=== PATIENT | female | born 1975 | race Caucasian/White ===

== ENCOUNTER → 2017-12-05 | Outpatient (CLI) | payer BC ==
[~2017-12-05] MED LIST: IOPAMIDOL 370 MG/ML 200 ML INFUS..BTL INJ ONE; LEXAPRO10 MG PO; SODIUM CHLORIDE 0.9% 250ML 250 ML ONE; TROKENDI XR PO
--- NOTE | 2017-12-05 17:55 | Diagnostic Imaging Report ---
PROCEDURE: CT ABDOMEN \T\ PELVIS W/WO CONTRAST TECHNIQUE: The abdomen and pelvis were scanned utilizing a multidetector helical scanner from the diaphragm to the lesser trochanter before and after the IV administration of 150 cc of Isovue 370 and the oral administration of water. Coronal and sagittal multiplanar reformations were obtained. COMPARISON: None. INDICATIONS: HEMATURIA FINDINGS: LOWER THORAX: Focal tree in bud and groundglass opacities extending along the bronchovascular bundle in the anterior left lower lobe (series 3, images 2-7). Rest of the lung bases is clear. HEPATOBILIARY: Normal hepatic size and contour. No focal hepatic lesions. No biliary ductal dilation. Cholecystectomy clips. SPLEEN: No splenomegaly. PANCREAS: No focal masses or ductal dilatation. ADRENALS: No adrenal nodules. KIDNEYS/URETERS: No renal or, ureteral, or bladder calculi. No hydronephrosis, hydroureter, or evidence of obstruction. Symmetrical renal enhancement. * 6 mm fat containing cortical lesion in the superior pole of the right kidney (series 6, image 67), which measure fat density. * 1.9 x 1.5 x 1.5 cm partially exophytic, well-circumscribed fat density lesion in the mid to inferior left kidney (series 6, image 98). No solid enhancing masses or cystic lesions. Good opacification of the renal collecting systems, renal pelves, and bilateral ureters. No filling defects, strictures, or extrinsic compressions. PELVIC ORGANS/BLADDER: No bladder calculi, wall thickening, or focal lesions. T-shaped IUD in place in the endometrial cavity. 5.6 x 5.7 x 5.7 cm mildly hypodense lesion in the uterine body/lower uterine segment, likely representing a fibroid. No adnexal masses. PERITONEUM / RETROPERITONEUM: No free air or fluid. LYMPH NODES: No lymphadenopathy. VESSELS: Unremarkable. GI TRACT: No bowel dilation or evidence of obstruction. Appendix is not identified, and normal in caliber. A few scattered diverticula in the sigmoid colon, without diverticulitis. BONES AND SOFT TISSUES: No aggressive lytic lesion. Degenerative disc changes L4-L5 and L5-S1. Soft tissues are grossly unremarkable. IMPRESSION: 1. No renal, ureteral or bladder calculi. No hydronephrosis or obstruction. No filling defects, strictures, or extrinsic compressions in the opacified portions of the genitourinary tract. 2. Bilateral renal angiomyolipomas. 3. Findings in the anterior aspect of the left lower lobe consistent with endobronchial spread of infection/pneumonia or aspiration. 4. 5.7 cm hypodense lesion in the uterus likely represents a fibroid. This may be confirmed with transvaginal ultrasound, if clinically indicated. Tucker Talbert M.D. Dictated by: Tucker Talbert M.D. on 12/05/2017 at 17:57 Electronically approved by: Tucker Talbert M.D. on 12/05/2017 at 17:57
== END ==
LOC: CT 08:26
PROVIDERS: ATTEND Urology
DX: R31.21 Asymptomatic microscopic hematuria (principal)
CPT/HCPCS: 74178; J7050; Q9967

== ENCOUNTER → 2017-12-11 | Day surgery (SDC) | payer BC ==
[~2017-12-11] MED LIST changes: +BELLADONNA/OPIUM 60 MG SUPP PR ONE; +CEFTRIAXONE SOD 1 GM VIAL ONE; +DEXAMETHASONE SOD PHOS INJ 4 MG/ML VIAL ONE; +FENTANYL CITRATE/PF 100MCG/2 ML INJ ONE; -IOPAMIDOL 370 MG/ML 200 ML INFUS..BTL INJ ONE; +IOPAMIDOL 610MG/1ML 300 MG/ML VIAL IV ONE; +LIDOCAINE HCL 2% LOCAL INJ 5 ML SDV VIAL INJ ONE; +MIDAZOLAM HCL 2 MG/2 ML VIAL ONE; +ONDANSETRON HCL INJ 2 MG/ML VIAL ONE; +PROPOFOL IV EMULSION 10 MG/ML 20 ML VIAL ONE; +SEVOFLURANE INHAL SOLN 250 ML PEN BTL ONE; -SODIUM CHLORIDE 0.9% 250ML 250 ML ONE
--- OUTSIDE RECORDS SUMMARY | 2017-12-11 07:02 | XMS REPORT ---
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 Allergies, Adverse Reactions, Alerts This patient has no known allergies or adverse reactions. Medications This patient has no known medications. Results Test Description Test Time Test Comments Text Results Atomic Results Result Comments CT ABDOMEN/PELVIS WOW [address] [address] Patient Name: CARLOTTA MATA MR #: [id number] : 1975 Age/Sex: 42/F Req #: [id number] Adm Physician: Ordered by: CHRISTIANO PEÑA MD Report #: [id number] Location: CT Room/Bed: Procedure: [id number] CT/CT ABDOMEN/PELVIS WOW Exam Date: 12/05/17 Exam Time: 1000 REPORT STATUS: Signed PROCEDURE: CT ABDOMEN T PELVIS W/WO CONTRAST TECHNIQUE: The abdomen and pelvis were scanned utilizing a multidetector helical scanner from the diaphragm to the lesser trochanter before and after the IV administration of 150 cc of Isovue 370 and the oral administration of water. Coronal and sagittal multiplanar reformations were obtained. COMPARISON: None. INDICATIONS: HEMATURIA FINDINGS: LOWER THORAX: Focal tree in bud and groundglass opacities extending along the bronchovascular bundle in the anterior left lower lobe (series 3, images 2-7). Rest of the lung bases is clear. HEPATOBILIARY: Normal hepatic size and contour. No focal hepatic lesions. No biliary ductal dilation. Cholecystectomy clips. SPLEEN: No splenomegaly. PANCREAS: No focal masses or ductal dilatation. ADRENALS: No adrenal nodules. KIDNEYS/URETERS: No renal or, ureteral, or bladder calculi. No hydronephrosis, hydroureter, or evidence of obstruction. Symmetrical renal enhancement. * 6 mm fat containing cortical lesion in the superior pole of the right kidney (series 6, image 67), which measure fat density. * 1.9 x 1.5 x 1.5 cm partially exophytic, well-circumscribed fat density lesion in the mid to inferior left kidney (series 6, image 98). No solid enhancing masses or cystic lesions. Good opacification of the renal collecting systems, renal pelves, and bilateral ureters. No filling defects, strictures, or extrinsic compressions. PELVIC ORGANS/BLADDER: No bladder calculi, wall thickening, or focal lesions. T-shaped IUD in place in the endometrial cavity. 5.6 x 5.7 x 5.7 cm mildly hypodense lesion in the uterine body/lower uterine segment, likely representing a fibroid. No adnexal masses. PERITONEUM / RETROPERITONEUM: No free air or fluid. LYMPH NODES: No lymphadenopathy. VESSELS: Unremarkable. GI TRACT: No bowel dilation or evidence of obstruction. Appendix is not identified, and normal in caliber. A few scattered diverticula in the sigmoid colon, without diverticulitis. BONES AND SOFT TISSUES: No aggressive lytic lesion. Degenerative disc changes L4-L5 and L5-S1. Soft tissues are grossly unremarkable. IMPRESSION: 1. No renal, ureteral or bladder calculi. No hydronephrosis or obstruction. No filling defects, strictures, or extrinsic compressions in the opacified portions of the genitourinary tract. 2. Bilateral renal angiomyolipomas. 3. Findings in the anterior aspect of the left lower lobe consistent with endobronchial spread of infection/ pneumonia or aspiration. 4. 5.7 cm hypodense lesion in the uterus likely represents a fibroid. This may be confirmed with transvaginal ultrasound, if clinically indicated. Jerardo Katz M.D. Dictated by: Jerardo Katz M.D. on 12/05/2017 at 17:57 Electronically approved by: Jerardo Katz M.D. on 12/05/2017 at 17:57 Dictated By : JERARDO KATZ MD 56 Transcribed By: NIKI on 12/05/171756 COPY TO: CHRISTIANO PEÑA MD
--- NOTE | 2018-01-27 04:09 | Operative Report ---
DATE OF PROCEDURE: December 11, 2017 PREOPERATIVE DIAGNOSES 1. Microscopic hematuria. 2. Mixed-type urinary incontinence. POSTOPERATIVE DIAGNOSES 1. Microscopic hematuria. 2. Mixed-type urinary incontinence. 3. Grade 2 cystocele. 4. Urethral hypomobility. OPERATIONS PERFORMED 1. Cystourethroscopy with bilateral ureteral catheterization and retrograde ureteropyelography (separate procedure performed for the microhematuria). 2. Interpretation of retrograde ureteropyelography. 3. Supervision of fluoroscopy. No radiologist present. 4. Pelvic examination under anesthesia. ANESTHESIA: General. COMPLICATIONS: None. CLINICAL SUMMARY: Amarilis Monet is a 42-year-old woman with bilateral angiomyolipomas of her kidneys. She also has known fibroid uterus and an IUD in situ. She has had a prior "bladder mesh." She is brought to the operating room today for evaluation. She is aware of the risks of bleeding, infection, injury to adjacent structures, need for additional procedures, and elected to proceed. OPERATIVE PROCEDURE IN DETAIL: Informed consent was verified. Amarilis Monet was properly identified, taken to the operating room, and placed on the cystoscopy table in supine position. Anesthesia was uneventfully begun. Patient was then carefully and gently re-positioned in the dorsal lithotomy position with all pressure points well padded. Her genitalia were prepared and draped in the usual sterile fashion. The 22.5-Maldivian cystoscope sheath with the obturator in place was atraumatically inserted in the patient's urethra and bladder was drained. Panendoscopy of the urinary bladder revealed no suspicious mucosal lesions. No tumors, no stones, no diverticula. Normally positioned and configured ureteral orifices were identified. An 8-Maldivian catheter was used to cannulate each ureter and retrograde ureteropyelograms were performed. Interpretation of retrograde ureteropyelography: Contrast was instilled in retrograde fashion bilaterally. There were no tumors, no stones, and no diverticula. Unobstructed drainage was observed bilaterally fluoroscopically. A port was noted and the IUD was noted as well. Patient's bladder was drained. The cystoscope was withdrawn. Pelvic examination under anesthesia revealed grade 2 cystocele with urethral hypermobility. The patient was then uneventfully reversed from anesthesia and taken to recovery room in stable condition. There were no complications to the procedure. She tolerated the procedure well. Explicit postop instructions were given. We will follow the patient up in the office. Job#: [id number] CF cc:PAUL PERSAUD DO
== END | disposition home or self-care (01) ==
LOC: OR 07:01
PROVIDERS: ATTEND Urology
DX: R31.29 Other microscopic hematuria (principal); N39.46 Mixed incontinence; N36.41 Hypermobility of urethra; N81.10 Cystocele, unspecified; D17.71 Benign lipomatous neoplasm of kidney; D25.9 Leiomyoma of uterus, unspecified; Z97.5 Presence of (intrauterine) contraceptive device; F32.9 Major depressive disorder, single episode, unspecified; F41.9 Anxiety disorder, unspecified; Z87.891 Personal history of nicotine dependence
CPT/HCPCS: 52005; 74420; 81025; C1758; J0696; J1100; J2001; J2250; J2405; Q9967